=== PATIENT | female | born 1975 | race American Indian/Alaskan Native ===

== ENCOUNTER 2020-11-07 13:36 | Emergency (ER) | payer BC ==
[2020-11-07 13:53] VITALS: BP 109/76; PULSE 92; TEMP 98.8; BMI 27.9
[2020-11-07] MEDS ORDERED: METHOCARBAMOL 500 MG TABLET PO ONE (15:02)
[2020-11-07] MEDS ORDERED: METHOCARBAMOL 500 MG TABLET ONE (15:04)
[2020-11-07 15:39] LABS: BASO % 0.4 % (0-2.0); EOS % 3.1 % (0-4.5); HEMATOCRIT 38.4 % (32.4-45.2); HEMOGLOBIN 13.2 GM/dL (10.7-15.3); LYMPH % 29.9 % (8-40); MCH 30.3 pg (25.7-33.7); MCHC 34.2 g/dl (32.0-36.0); MEAN CELL VOLUME 88.7 fl (80-96); MEAN PLT VOLUME 7.6 fl (7.5-11.1); MONO % 6.7 % (3.8-10.2); NEUT % 59.9 % (42.8-82.8); PLATELET COUNT 289 10^3/uL (134-434); RBC 4.34 M/mm3 (3.60-5.2); RDW 13.1 % (11.6-15.6); WHITE BLOOD COUNT 8.6 K/mm3 (4.0-10.0)
[2020-11-07 15:57] LABS: CALCIUM 9.1 mg/dL (8.5-10.1); CHLORIDE 106 mmol/L (98-107); SODIUM 139 mmol/L (136-145)
[2020-11-07 15:58] LABS: ANION GAP 9 MMOL/L (8-16); BLOOD UREA NITROGEN 14.3 mg/dL (7-18); CO2 24 mmol/L (21-32); GLUCOSE,RANDOM 92 mg/dL (74-106)
[2020-11-07 16:01] LABS: CREATININE 0.7 mg/dL (0.55-1.3)
== END 2020-11-07 19:16 | disposition home or self-care (01) ==
LOC: JERFT 13:36 → JER 13:36 → JERFT 19:16
DX: R07.9 Chest pain, unspecified (principal)
CPT/HCPCS: 36415; 71260-TC; 80048; 82550; 84484; 85025; 93005; 93010; 99285-25; Q9967